=== PATIENT | male | born 1965 ===

== ENCOUNTER 2020-01-21 16:04 | Inpatient (IN) | payer MEDICAID, OTHER ==
[~2020-01-21] VITALS: Ht 182.9 cm; Wt 87.1 kg
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
[2020-01-21 18:40] LABS: BASOPHILS % (AUTO) 1 % (0-1); EOSINOPHILS % (AUTO) 0 % (1-7); LYMPHOCYTES % (AUTO) 15 % (22-44); MEAN CORPUSCULAR HEMOGLOBIN 28.9 pg (27.5-34.5); MEAN CORPUSCULAR HGB CONC 33.2 g/dL (33.2-36.2); MEAN PLATELET VOLUME 7.3 fL (7.4-10.4); MONOCYTES % (AUTO) 7 % (2-9); NEUTROPHILS % (AUTO) 77 % (42-75); PLATELET COUNT 234 x10^3/uL (130-400); RED BLOOD COUNT 4.83 x10^6/uL (4.38-5.82); RED CELL DISTRIBUTION WIDTH 14.8 % (9.4-14.8)
[2020-01-21 18:50] LABS: ALBUMIN 4.1 g/dL (3.4-5.0); ANION GAP 8 mmol/L (5-15); CHLORIDE 106 mmol/L (98-107)
[2020-01-21 18:54] LABS: MD NO
--- NOTE | 2020-01-21 18:54 | NUR ---
PT RESTING IN [facility]. EKG COMPLETE. PT TBADM
[2020-01-21] MEDS ORDERED: MORPHINE SULFATE 4 MG/ML, 1ML IVPush PRN (19:00)
[2020-01-21] MEDS ORDERED: ONDANSETRON 2MG/ML, 2ML IVPush PRN ×2 (19:00)
[2020-01-21] MEDS ORDERED: ENALAPRILAT 1.25 MG/ML, 2ML IVPush PRN (19:00)
[2020-01-21] MEDS ORDERED: DOCUSATE 100 MG CAPSULE PO PRN (19:00)
[2020-01-21] MEDS ORDERED: PLEASE ENTER ALLERGIES MC SCH (19:00)
[2020-01-21] MEDS ORDERED: SODIUM CHLORIDE FLUSH 10ML SYR IVF PRN (19:00)
[2020-01-21 21:00] VITALS: BP 137/79
[2020-01-21] MEDS: HEPARIN 5,000 UNITS/ML, 1ML SQ SCH (22:31)
[2020-01-21] MEDS: SODIUM CHLORIDE 0.9% 1,000 ML IV SCH (22:31)
[2020-01-21] MEDS: morphine SULFATE 10 MG/ML, 1ML IVPush PRN (22:40)
[2020-01-22 00:28] VITALS: BP 123/75
[2020-01-22] MEDS: HEPARIN 5,000 UNITS/ML, 1ML SQ SCH ×3 (04:54→22:00)
[2020-01-22 06:03] LABS: ANION GAP 6 mmol/L (5-15); CALCIUM 8.5 mg/dL (8.5-10.1); CHLORIDE 108 mmol/L (98-107); CREATININE 0.83 mg/dL (0.7-1.3)
[2020-01-22 06:04] LABS: BASOPHILS % (AUTO) 0 % (0-1); EOSINOPHILS % (AUTO) 0 % (1-7); LYMPHOCYTES % (AUTO) 26 % (22-44); MEAN CORPUSCULAR HGB CONC 33.2 g/dL (33.2-36.2); MEAN PLATELET VOLUME 7.1 fL (7.4-10.4); MONOCYTES % (AUTO) 9 % (2-9); NEUTROPHILS % (AUTO) 65 % (42-75); PLATELET COUNT 199 x10^3/uL (130-400); RED BLOOD COUNT 4.52 x10^6/uL (4.38-5.82); RED CELL DISTRIBUTION WIDTH 14.8 % (9.4-14.8)
[2020-01-22 06:13] LABS: MD NO
[2020-01-22 07:33] VITALS: BP 128/75
[2020-01-22] MEDS: morphine SULFATE 10 MG/ML, 1ML IVPush PRN (08:55)
[2020-01-22] MEDS: SODIUM CHLORIDE 0.9% 1,000 ML IV SCH (08:55)
[2020-01-22] MEDS ORDERED: LABETALOL 5MG/ML, 20ML IV PRN (09:30)
[2020-01-22] MEDS ORDERED: OXYcodone 5 MG/5 ML ORAL.SOL UDC PO PRN (09:30)
[2020-01-22] MEDS ORDERED: hydrALAzine 20 MG/ML, 1ML IV PRN (09:30)
[2020-01-22] MEDS ORDERED: ONDANSETRON 2MG/ML, 2ML IVPush PRN (09:30)
[2020-01-22] MEDS ORDERED: PROMETHAZINE 25 MG/ML, 1ML IVPush PRN (09:30)
[2020-01-22] MEDS ORDERED: EPHEDRINE 50 MG/ML, 1ML IVPush PRN (09:30)
[2020-01-22] MEDS ORDERED: ACETAMINOPHEN 325 MG TABLET PO PRN (09:30)
[2020-01-22] MEDS ORDERED: MEPERIDINE/PF 25MG/0.5ML IVPush PRN (09:30)
[2020-01-22] MEDS ORDERED: LIDOCAINE/PF 1%, 30ML ONE (11:05)
[2020-01-22] MEDS ORDERED: BALANCED SALT OPHTH IRRIG SOLN 18ML ONE (11:05)
[2020-01-22] MEDS ORDERED: OXYMETAZOLINE NASAL SPRAY 0.05%,30ML ONE (11:05)
[2020-01-22] MEDS ORDERED: FENTANYL PF 250 MCG/5ML ONE (12:23)
[2020-01-22] MEDS ORDERED: MIDAZOLAM 1 MG/ML, 2ML ONE (12:23)
[2020-01-22] MEDS ORDERED: LIDOCAINE GEL 2%, 5ML ONE ×2 (13:36→14:29)
[2020-01-22] MEDS ORDERED: LIDOCAINE 1%-EPI 1:100K, 20ML INFIL ONE (13:45)
[2020-01-22] MEDS ORDERED: SUGAMMADEX 200 MG/2 ML IVPush ONE ×2 (14:10)
[2020-01-22] MEDS ORDERED: ROCURONIUM 10MG/ML,5ML ONE (14:10)
[2020-01-22] MEDS ORDERED: DEXAMETHASONE 4 MG/ML, 1ML ONE (14:10)
[2020-01-22] MEDS ORDERED: CEFAZOLIN 1,000 MG ONE (14:10)
[2020-01-22] MEDS ORDERED: SUCCINYLCHOLINE 20 MG/ML, 10ML ONE (14:10)
[2020-01-22] MEDS ORDERED: PROPOFOL 10 MG/ML, 20ML ONE (14:10)
[2020-01-22] MEDS ORDERED: ONDANSETRON 2MG/ML, 2ML ONE (14:10)
[2020-01-22] MEDS ORDERED: OXYcodone 5 MG/5 ML ORAL.SOL UDC ONE (14:51)
[2020-01-22] MEDS ORDERED: FENTANYL PF 100 MCG/2ML ONE ×2 (14:51→15:10)
[2020-01-22] MEDS ORDERED: MEPERIDINE/PF 25MG/ML,1ML ONE (14:51)
[2020-01-22] MEDS: FENTANYL PF 100 MCG/2ML IV PRN ×4 (14:58→15:22)
[2020-01-22] MEDS ORDERED: HYDROmorphone 1 MG/ML, 1ML INJ ONE ×2 (15:10→15:38)
[2020-01-22] MEDS: HYDROmorphone 1 MG/ML, 1ML INJ IVPush PRN ×4 (15:12→15:45)
[2020-01-22 20:10] VITALS: BP 162/95
[2020-01-22] MEDS: ACETAMINOPHEN 500 MG TABLET PO PRN (20:46)
[2020-01-22] MEDS: OXYcodone IR 5MG TABLET PO PRN (20:46)
[2020-01-22] MEDS: AMPICILLIN/SULBACTAM 3 GM in SODIUM CHLORIDE 0.9% 100 ML IV SCH (20:46)
[2020-01-22] MEDS: D5%-0.45% NACL 1,000 ML IV SCH (23:23)
[2020-01-23 00:02] VITALS: BP 152/89
[2020-01-23] MEDS: AMPICILLIN/SULBACTAM 3 GM in SODIUM CHLORIDE 0.9% 100 ML IV SCH ×3 (02:10→14:12)
[2020-01-23 03:20] VITALS: BP 119/62
[2020-01-23 07:18] VITALS: BP 137/78
[2020-01-23] MEDS: OXYcodone IR 5MG TABLET PO PRN ×2 (07:55→15:54)
[2020-01-23] MEDS: HEPARIN 5,000 UNITS/ML, 1ML SQ SCH ×3 (07:56→22:00)
[2020-01-23] MEDS: ACETAMINOPHEN 500 MG TABLET PO PRN ×2 (07:56→15:54)
[2020-01-23 13:25] VITALS: BP 144/80
[2020-01-23] MEDS ORDERED: MORPHINE SULFATE 4 MG/ML, 1ML ONE (20:02)
[2020-01-23] MEDS: D5%-0.45% NACL 1,000 ML IV SCH (20:05)
[2020-01-23] MEDS: morphine SULFATE 10 MG/ML, 1ML IVPush PRN (20:05)
[2020-01-23 20:25] VITALS: BP 138/78
[2020-01-24 04:06] VITALS: BP 151/79
[2020-01-24] MEDS ORDERED: MORPHINE SULFATE 4 MG/ML, 1ML ONE (04:15)
[2020-01-24] MEDS: morphine SULFATE 10 MG/ML, 1ML IVPush PRN (04:18)
[2020-01-24] MEDS: HEPARIN 5,000 UNITS/ML, 1ML SQ SCH ×2 (04:50→14:00)
[2020-01-24] MEDS: OXYcodone IR 5MG TABLET PO PRN ×2 (07:56→15:04)
[2020-01-24] MEDS: ACETAMINOPHEN 500 MG TABLET PO PRN ×2 (07:57→15:03)
[2020-01-24 08:57] VITALS: BP 114/76
[2020-01-24] MEDS: D5%-0.45% NACL 1,000 ML IV SCH (09:20)
[2020-01-24] MEDS ORDERED: ACET1TAB64 PO (11:13)
[2020-01-24] MEDS ORDERED: AMOX1TAB64 PO (11:21)
[2020-01-24 14:02] VITALS: BP 125/78
== END 2020-01-24 16:42 | disposition home or self-care (01) | DRG 142 ==
LOC: ED 17:59 → EDIP 18:43 → 4NE 21:05
PROVIDERS: ADMIT Family Medicine; ATTEND Internal Medicine
PROC: 0NSV04Z Reposition Left Mandible with Internal Fixation Device, Open Approach (ICD-10-PCS; principal; 2020-01-22 13:30)
DX: S02.66XA Fracture of symphysis of mandible, initial encounter for closed fracture (principal); S02.642A Fracture of ramus of left mandible, initial encounter for closed fracture; Z20.828 Contact with and (suspected) exposure to other viral communicable diseases; Y93.89 Activity, other specified; Y92.89 Other specified places as the place of occurrence of the external cause; Y99.8 Other external cause status
CPT/HCPCS: 36415; 99285; J3490; 70486; 80048; 82040; 85025; 87635; 93005; C1713; G0378; J0295; J0690; J1100; J1170; J2175; J2250; J2405; J2704; J3010; J0330; J2270; J7030